=== PATIENT | male | born 1965 | race Caucasian/White ===

== ENCOUNTER 2021-11-16 22:46 | Observation (INO) ==
[2021-11-16 23:19] LABS: Basophils # (auto) 0.02 K/uL (0-0.2); Basophils % (auto) 0.4 %; Eosinophils # (auto) 0.26 K/uL (0-0.5); Eosinophils % (auto) 5.2 %; Hematocrit (blood only) 38.8 % (42-52); Hemoglobin 13.6 g/dL (14.0-18.0); Immature Granulocytes # (auto) 0.01 K/uL (0.00-0.02); Immature Granulocytes % (auto) 0.2 %; Lymphocytes # (auto) 2.09 K/uL (1.2-3.4); Lymphocytes % (auto) 41.5 %; Mean Corpuscular Hemoglobin 30.8 pg (25-34); Mean Corpuscular Hgb Conc 35.1 g/dL (32-36); Mean Platelet Volume 11.6 fL (7.4-10.4); Monocytes % (auto) 11.9 %; Neutrophils # (auto) 2.06 K/uL (1.4-6.5); Neutrophils % (auto) 40.8 %; Platelet Count 184 K/uL (130-400); RDW Coefficient of Variation 13.2 % (11.5-14.5); RDW Standard Deviation 42.8 fL (36.4-46.3); Red Blood Count 4.41 M/uL (4.7-6.1); White Blood Count 5.04 K/uL (4.8-10.8)
[2021-11-16 23:33] LABS: Partial Thromboplastin Time 27.2 Seconds (21.0-31.0); Prothrombin Time 10.4 Seconds (9.0-12.0)
--- NOTE | 2021-11-16 23:33 | Emergency Department Note ---
History of Present Illness General Chief complaint: Chest Pain Time Seen by Provider: 11/16/21 22:55 History of Present Illness Maximum Pain Intensity: [age]-year-old male presents emergency department with an onset of substernal chest pressure radiating to his left shoulder that started 1 hour prior to arrival at rest. Patient states that he was getting ready to go to bed developed subs ternal chest pressure and shortness of breath diaphoresis and some nausea. Patient states that he has been evaluated in the past for chest pain. Patient was given aspirin by EMS prior to arrival. Patient also states that he took NyQuil ; patient states that the pain initially was 9 out of 10 is now 1 out of 10. There are no other mitigating or alleviating factors Home Medications Medication Instructions Recorded Confirmed Type cholecalciferol (vitamin D3) 25 1,000 units PO QAM #60 cap 04/19/19 07/06/21 History mcg (1,000 unit) capsule gabapentin 100 mg capsule 100 mg PO HS PRN cap 04/19/19 07/06/21 History tamsulosin 0.4 mg capsule 0.4 mg PO HS #90 cap 01/01/20 07/06/21 Rx pantoprazole 40 mg tablet,delayed 40 mg PO QAM 08/01/20 07/06/21 History release lisinopril 20 mg tablet 20 mg PO DAILY #90 tab 10/20/20 07/06/21 Rx blood sugar diagnostic (Contour 05/04/21 07/06/21 History Next Test Strips) insulin syringe-needle U-100 0.5 #300 ea 05/04/21 07/06/21 Rx mL 31 gauge x 5/16" (BD Insulin Syringe Ultra-Fine) pen needle, diabetic 32 gauge x #100 ea 05/04/21 07/06/21 Rx 5/32" (BD Saida 2nd Gen Pen Needle) aspirin 81 mg capsule 81 mg PO DAILY #30 cap 07/06/21 07/06/21 Rx insulin aspart U-100 100 unit/mL See Rx Instructions SQ TID #54 ml 07/06/21 Rx subcutaneous solution insulin degludec 100 unit/mL (3 45 unit SUBCUT DAILY 90 Days #45 ml 07/06/2110/25 Rx mL) subcutaneous pen (Tresiba FlexTouch U-100 insulin) rosuvastatin 5 mg tablet 5 mg PO .every other day #30 tab 07/06/21 07/06/21 Rx semaglutide 0.5 mg SUBCUT WK 11/17/21 11/17/21 History Allergies Allergy/AdvReac Type Severity Reaction Status Date / Time pollen extracts Allergy Verified 07/06/21 08:34 Past Med/Surg History Medical History Acid reflux Acute sinusitis BPH with obstruction/lower urinary tract symptoms Close exposure to 2019-nCoV COVID-19 (07/2020) Diabetic peripheral neuropathy Hyperlipidemia Hypertension Influenza B (10/2019) Nasal congestion RLS (restless legs syndrome) Social History Smoking Status: Never smoker Preferred Language: Spanish Feels Safe at Home: Yes Review of Systems A total of 10 systems reviewed and were otherwise negative Ear, Nose, Mouth, Throat: no ear pain Respiratory: no cough Cardiovascular: + chest pain Gastrointestinal: no abdominal pain Physical Exam Vital Signs Vital Signs - 24 hr 11/16/21 22:47 11/17/21 00:33 Temperature 36.8 C Temperature Source Oral Pulse Rate 78 Pulse Rate [Right Brachial] 71 Respiratory Rate 20 16 Respiratory Effort / Characteristics Non-Labored Spontaneous Respiratory Depth Normal Blood Pressure 181/89 H Blood Pressure [Right Arm] 172/79 H Blood Pressure Mean 119 Blood Pressure Mean [Right Arm] 110 Pulse Oximetry 97 97 Oxygen Delivery Method Room Air Room Air Sepsis New/Unexplained Change in Mental Status N/A Sepsis Action Taken by Nursing No Action Required VITAL SIGNS - Vital signs and nursing notes were reviewed. GENERAL - No acute distress. Communicates well with provider and answers questions appropriately. SKIN - Without rashes. HEAD - NC/AT. EYES - PERRL with EOMI bilaterally. Sclera anicteric. Palpebral conjunctiva pink and moist with no injection noted. EARS - No deformities of external structures noted on gross examination bilaterally. NOSE - Midline and without cyanosis. No epistaxis or purulent drainage noted. Septum midline without deviation or septal hematoma noted. MOUTH/OROPHARYNX - Without perioral cyanosis. Buccal mucosa pink a NECK - Neck with FROM. Supple LUNGS - Chest wall symmetric without accessory muscle use, intercostals retractions, or central cyanosis. Normal vesicular breath sounds CTA B/L. No wheezes, rales, or rhonchi appreciated. CARDIAC - RRR with S1/S2. No murmur, rubs, or gallops appreciated. ABDOMEN - Abdominal contour soft without pulsations or visible masses. BS normoactive all four quadrants. No tenderness, palpable masses, hepatosplenomegaly, or ascites noted. EXTREMITIES - No clubbing or peripheral cyanosis. No pretibial edema present.. +5/5 strength noted in UE/LE bilaterally. NEUROLOGIC - Cranial nerves II through XII grossly intact. PSYCH - A&Ox3 and cooperates fully with examiner. Pt is very pleasant and interacts well with examiner. Course Reevaluation(s) Reevaluation #1: Resting in no distress at 1:08 AM no current chest pain, patient is admitted to the [facility] for further evaluation of his chest pain Medical Decision Making Medical Records Attestation: I reviewed the patient's medical records. Laboratory Data Attestation: I reviewed the patient's lab results. Result diagrams: 11/16/21 23:06 11/16/21 23:06 Lab Results 11/16/21 11/16/21 11/16/21 Range/Units 23:06 23:06 23:06 WBC 5.04 (4.8-10.8) K/uL RBC 4.41 L (4.7-6.1) M/uL Hgb 13.6 L (14.0-18.0) g/dL Hct 38.8 L (42-52) % MCV 88.0 (80-100) fL MCH 30.8 (25-34) pg MCHC 35.1 (32-36) g/dL RDW Std Deviation 42.8 (36.4-46.3) fL RDW Coeff of Ester 13.2 (11.5-14.5) % Plt Count 184 (130-400) K/uL MPV 11.6 H (7.4-10.4) fL Immature Gran % (Auto) 0.2 % Neut % (Auto) 40.8 % Lymph % (Auto) 41.5 % [place] % (Auto) 11.9 % Eos % (Auto) 5.2 % Baso % (Auto) 0.4 % Neut # (Auto) 2.06 (1.4-6.5) K/uL Lymph # (Auto) 2.09 (1.2-3.4) K/uL [place] # (Auto) 0.60 H (0.11-0.59) K/uL Eos # (Auto) 0.26 (0-0.5) K/uL Baso # (Auto) 0.02 (0-0.2) K/uL Immature Gran # (Auto) 0.01 (0.00-0.02) K/uL PT 10.4 (9.0-12.0) Seconds INR 1.0 (0.9-1.1) APTT 27.2 (21.0-31.0) Seconds PTT Ratio 1.0 Sodium 138 (136-145) mmol/L Potassium 3.9 (3.5-5.1) mmol/L Chloride 107 (98-107) mmol/L Carbon Dioxide 25 (21-32) mmol/L Anion Gap 6 (3-11) BUN 18 (6-23) mg/dl Creatinine 1.06 (0.6-1.4) mg/dl Est Cr Clr Drug Dosing 89.7 ml/min Est GFR ( Amer) 89.9 ml/min Est GFR (Non-Af Amer) 77.5 ml/min BUN/Creatinine Ratio 17.0 (10-20) Glucose 145 H (70-99(Fasting)) mg/dl Calcium 9.2 (8.5-10.1) mg/dl Total Bilirubin 0.2 (0.2-1.0) mg/dl AST 21 (13-39) U/L ALT 40 (7-52) U/L Alkaline Phosphatase 49 (34-104) U/L Troponin I < 0.03 (0-0.04) ng/ml Total Protein 6.2 (6.0-8.3) gm/dl Albumin 3.9 (3.4-5.0) gm/dl Globulin 2.3 L (2.5-4.0) gm/dl Albumin/Globulin Ratio 1.7 (0.9-2) Imaging Data Attestation: I personally reviewed and interpreted this imaging study as follows: My Impression: Chest x-ray interpreted by me negative for infiltrate normal mediastinum no pneumothorax ECG Data Attestation: I personally reviewed and interpreted this ECG as follows: Additional Comments: EKG interpreted by me normal sinus rhythm rate of 79 normal intervals normal axis poor R wave progression the precordium no obvious ST segment elevation or depression MDM Narrative Medical decision making differential diagnosis angina, unstable angina, acute AR, musculoskeletal chest pain, GERD; plan is to check cardiac work-up; Impression & Plan Chest pain, Hypertension Discharge Plan Visit Data Chief Complaint: Chest Pain ED Provider: Michael Maria Discharge Problem: Chest pain, Hypertension Patient Disposition: Admitted As Inpatient Forms Stand Alone Forms: My [facility] broadbandchoices Prescriptions Prescriptions: No Action tamsulosin 0.4 mg capsule 0.4 mg PO HS Qty: 90 RF: 1 (DME) Contour Next Test Strips Strip See Rx Instructions .Route RF: 0 (DME) pen needle, diabetic [BD Saida 2nd Gen Pen Needle] 32 gauge x 5/32" needle See Rx Instructions .Route Qty: 100 RF: 1 (DME) insulin syringe-needle U-100 [BD Insulin Syringe Ultra-Fine] 0.5 mL 31 gauge x 5/16" syringe See Rx Instructions .Route Qty: 300 RF: 3 rosuvastatin 5 mg tablet 5 mg PO .every other day Qty: 30 RF: 2 Hold Instructions: cost prohibitive Tresiba FlexTouch U-100 100 unit/mL (3 mL) insulin pen 45 unit subcut DAILY 90 Days Qty: 45 RF: 3 insulin aspart U-100 100 unit/mL solution See Rx Instructions SQ TID Qty: 54 RF: 0 aspirin 81 mg capsule 81 mg PO DAILY Qty: 30 RF: 2 lisinopril 20 mg tablet 20 mg PO DAILY Qty: 90 RF: 3 cholecalciferol (vitamin D3) 1,000 unit capsule 1,000 units PO QAM Qty: 60 RF: 0 gabapentin 100 mg capsule 100 mg PO HS PRN (Reason: neuropathy) RF: 0 pantoprazole 40 mg tablet,delayed release (DR/EC) 40 mg PO QAM RF: 0 semaglutide 0.25 mg or 0.5 mg(2 mg/1.5 mL) pen injector 0.5 mg subcut WK RF: 0 Referrals Referrals: Corinna Braxton MD [Primary Care Provider] -
[2021-11-16 23:45] LABS: Alanine Aminotransferase 40 U/L (7-52); Albumin Globulin Ratio 1.7 (0.9-2); Albumin Level 3.9 gm/dl (3.4-5.0); Alkaline Phosphatase 49 U/L (34-104); Anion Gap 6 (3-11); Aspartate Aminotransferase 21 U/L (13-39); Bilirubin,Total 0.2 mg/dl (0.2-1.0); Blood Urea Nitrogen 18 mg/dl (6-23); Calcium 9.2 mg/dl (8.5-10.1); Carbon Dioxide 25 mmol/L (21-32); Chloride 107 mmol/L (98-107); Creatinine Clr Calc Pharmacy 89.7 ml/min; Est GFR (African American) 89.9 ml/min; Est GFR (Non-African American) 77.5 ml/min; Globulin 2.3 gm/dl (2.5-4.0); Glucose 145 mg/dl (70-99(Fasting)); Potassium 3.9 mmol/L (3.5-5.1); Sodium 138 mmol/L (136-145); Total Protein 6.2 gm/dl (6.0-8.3)
[2021-11-17 00:01] LABS: Troponin I < 0.03 ng/ml (0-0.04)
--- NOTE | 2021-11-17 00:53 | History & Physical Report ---
Date of Service November 17, 2021 Assessment & Plan (1) Chest pain radiating to jaw: Plan: Left-sided burning chest pain radiating to jaw and arm/hypertension The patient will be admitted to telemetry for serial cardiac enzymes, serial EKG's, cardiac rhythm monitoring and a 2-D echocardiogram with Dopplers. Continue aspirin 81 mg daily, lisinopril 20 mg daily. Add Nitropaste 1 inch anterior chest wall every 6 hours Increase dosing rosuvastatin to high intensity (2) Chest pain radiating to arm: Plan: See above (3) Uncontrolled diabetes mellitus: Plan: Hold semaglutide and standing orders for insulin aspart Continue insulin degludec, but decreased to 45 to 30 units subcu daily while in hospital Accu-Cheks with sliding scale Check hemoglobin A1c (4) Diabetic peripheral neuropathy: Plan: Continue gabapentin (5) BPH with obstruction/lower urinary tract symptoms: Plan: Continue tamsulosin 0.4 mg at bedtime (6) Acid reflux: Plan: Continue pantoprazole 40 mg daily (7) Hyperlipidemia: Plan: Increase rosuvastatin from 5 to 20 mg subcu daily Check a fasting lipid panel (8) Hypertension: Plan: See above History of Present Illness Chief Complaint: The patient presents to the emergency department with complaint of severe burning pain and discomfort on theleft side of his chest, radiating to his left side of neck and arm, that began about 1 hour prior to arrival, as he was getting into bed. Primary Care Provider: Corinna Braxton MD The patient is a 56-year-old male with a past medical history including COVID-19 infection in September, obesity, uncontrolled diabetes mellitus, RLS, diabetic peripheral neuropathy, BPH with LUTS, GERD, hyperlipidemia, and hypertension. He presents with symptoms as noted above. He has had milder symptoms in the past, but nothing similar to this in intensity or persistence. He denies any recent change in dietary or exercise habits. He and his reports that there has been significantly more stress at work recently due it to being very busy due to it being backed up due to the COVID-19 pandemic Allergies Allergy/AdvReac Type Severity Reaction Status Date / Time pollen extracts Allergy Congested Verified 11/17/21 01:14 Home Medications Medication Instructions Recorded Confirmed Type gabapentin 100 mg capsule 100 mg PO HS PRN cap 04/19/19 11/17/21 History tamsulosin 0.4 mg capsule 0.4 mg PO HS #90 cap 01/01/20 11/17/21 Rx pantoprazole 40 mg tablet,delayed 40 mg PO QAM PRN 08/01/20 11/17/21 History release blood sugar diagnostic (Contour 05/04/21 07/06/21 History Next Test Strips) insulin syringe-needle U-100 0.5 #300 ea 05/04/21 07/06/21 Rx mL 31 gauge x 5/16" (BD Insulin Syringe Ultra-Fine) pen needle, diabetic 32 gauge x #100 ea 05/04/21 07/06/21 Rx 5/32" (BD Saida 2nd Gen Pen Needle) insulin aspart U-100 100 unit/mL See Rx Instructions SQ TID #54 ml 07/06/21 11/17/21 Rx subcutaneous solution insulin degludec 100 unit/mL (3 45 unit SUBCUT DAILY 90 Days #45 ml 07/06/21 11/17/21 Rx mL) subcutaneous pen (Tresiba FlexTouch U-100 insulin) rosuvastatin 5 mg tablet 5 mg PO .every other day #30 tab 07/06/21 11/17/21 Rx lisinopril 20 mg tablet 20 mg PO QAM 11/17/21 11/17/21 History semaglutide 0.5 mg SUBCUT WK 11/17/21 11/17/21 History Past Med/Surg History Medical History Acid reflux Acute sinusitis BPH with obstruction/lower urinary tract symptoms Close exposure to 2019-nCoV COVID-19 (07/2020) Diabetic peripheral neuropathy Hyperlipidemia Hypertension Influenza B (10/2019) Nasal congestion RLS (restless legs syndrome) Social History Smoking Status: Never smoker Preferred Language: Slovak Feels Safe at Home: Yes Review of Systems Review of Systems: The patient denies palpitations, cough, lower extremity swelling, sore throat, fevers, chills, sweats, nausea, vomiting, diarrhea , constipation, abdominal pain, pelvic pain, blood in urine or stool, dysuria, urinary frequency or urgency, lightheadedness, dizziness, headache, memory loss, loss of consciousness, rash, abnormal bruising or bleeding, imbalance, focal or generalized weakness, numbness or tingling in right arm or bilateral legs, generalized arthralgias or myalgias, back or neck pain, or night sweats. The review of systems is otherwise negative other than for that already noted above, and at least 10 systems have been reviewed. Physical Exam Physical Exam: The patient is awake, alert and oriented 3, well developed and well nourished, normocephalic and atraumatic, lying in bed and in no acute distress. HEENT--PERRL, EOMI, mucous membranes and oropharynx normal Neck--supple. No JVD. No bruits. Thyroid normal, trachea midline, no adenopathy. Heart--normal S1 and S2. No murmurs, rubs or gallops. Lungs--clear bilaterally, no respiratory distress, no accessory muscle use. Abdomen--normal bowel sounds and soft. Nontender. Nondistended. Obese Extremities--no cyanosis or clubbing. No edema. Dermatologic--normal skin turgor, normal color, no abnormal lymph nodes, no rash. Neurologic--cranial nerves II through XII grossly intact. Rheumatologic--normal range of motion. Psychiatric--normal affect. Results & Data Results & Data ([facility]) Vital Signs (Past 12 Hours) Vital Signs Temp Pulse Resp BP Pulse Ox 11/16/21 22:47 36.8 C 78 20 181/89 H 97 Laboratory Results Laboratory Results WBC 5.04 K/uL (4.8-10.8) 11/16/21 23:06 RBC 4.41 M/uL (4.7-6.1) L 11/16/21 23:06 Hgb 13.6 g/dL (14.0-18.0) L 11/16/21 23:06 Hct 38.8 % (42-52) L 11/16/21 23:06 MCV 88.0 fL (80-100) 11/16/21 23:06 MCH 30.8 pg (25-34) 11/16/21 23:06 MCHC 35.1 g/dL (32-36) 11/16/21 23:06 RDW Std Deviation 42.8 fL (36.4-46.3) 11/16/21 23:06 RDW Coeff of Ester 13.2 % (11.5-14.5) 11/16/21 23:06 Plt Count 184 K/uL (130-400) 11/16/21 23:06 MPV 11.6 fL (7.4-10.4) H 11/16/21 23:06 Immature Gran % (Auto) 0.2 % 11/16/21 23:06 Neut % (Auto) 40.8 % 11/16/21 23:06 Lymph % (Auto) 41.5 % 11/16/21 23:06 [place] % (Auto) 11.9 % 11/16/21 23:06 Eos % (Auto) 5.2 % 11/16/21 23:06 Baso % (Auto) 0.4 % 11/16/21 23:06 Neut # (Auto) 2.06 K/uL (1.4-6.5) 11/16/21 23:06 Lymph # (Auto) 2.09 K/uL (1.2-3.4) 11/16/21 23:06 [place] # (Auto) 0.60 K/uL (0.11-0.59) H 11/16/21 23:06 Eos # (Auto) 0.26 K/uL (0-0.5) 11/16/21 23:06 Baso # (Auto) 0.02 K/uL (0-0.2) 11/16/21 23:06 Immature Gran # (Auto) 0.01 K/uL (0.00-0.02) 11/16/21 23:06 PT 10.4 Seconds (9.0-12.0) 11/16/21 23:06 INR 1.0 (0.9-1.1) 11/16/21 23:06 APTT 27.2 Seconds (21.0-31.0) 11/16/21 23:06 PTT Ratio 1.0 11/16/21 23:06 Sodium 138 mmol/L (136-145) 11/16/21 23:06 Potassium 3.9 mmol/L (3.5-5.1) 11/16/21 23:06 Chloride 107 mmol/L (98-107) 11/16/21 23:06 Carbon Dioxide 25 mmol/L (21-32) 11/16/21 23:06 Anion Gap 6 (3-11) 11/16/21 23:06 BUN 18 mg/dl (6-23) 11/16/21 23:06 Creatinine 1.06 mg/dl (0.6-1.4) 11/16/21 23:06 Est Cr Clr Drug Dosing 89.7 ml/min 11/16/21 23:06 Est GFR ( Amer) 89.9 ml/min 11/16/21 23:06 Est GFR (Non-Af Amer) 77.5 ml/min 11/16/21 23:06 BUN/Creatinine Ratio 17.0 (10-20) 11/16/21 23:06 Glucose 145 mg/dl (70-99(Fasting)) H 11/16/21 23:06 Calcium 9.2 mg/dl (8.5-10.1) 11/16/21 23:06 Total Bilirubin 0.2 mg/dl (0.2-1.0) 11/16/21 23:06 AST 21 U/L (13-39) 11/16/21 23:06 ALT 40 U/L (7-52) 11/16/21 23:06 Alkaline Phosphatase 49 U/L (34-104) 11/16/21 23:06 Troponin I < 0.03 ng/ml (0-0.04) 11/16/21 23:06 Total Protein 6.2 gm/dl (6.0-8.3) 11/16/21 23:06 Albumin 3.9 gm/dl (3.4-5.0) 11/16/21 23:06 Globulin 2.3 gm/dl (2.5-4.0) L 11/16/21 23:06 Albumin/Globulin Ratio 1.7 (0.9-2) 11/16/21 23:06 SARS-CoV-2, RNA, NAAT NEGATIVE (NEGATIVE) 11/17/21 00:50 Code Status & VTE Plan Code Status Full code VTE Prophylaxis Plan VTE Prophylaxis will be ordered: Yes PG Care Time/CCT Total # of Minutes Spent Total Time Spent with Patient: Total time spent is greater than 50% in coordination of care (as documented) at patient's floor/unit and/or counseling patient: Coding Level of Care Code INT OBSERVATION CARE 70M LVL 3 Diagnoses Chest pain radiating to jaw R07.9 Chest pain radiating to arm R07.89 Uncontrolled diabetes mellitus E11.65 Diabetic peripheral neuropathy E11.42 BPH with obstruction/lower urinary tract symptoms N40.1; N13.8 Acid reflux K21.9 Hyperlipidemia E78.5 Hypertension I10 Hypertension type: primary hypertension (1) Hypertension Hypertension type: primary hypertension Qualified Code(s): I10 - Essential (primary) hypertension
[2021-11-17] MEDS: NITROGLYCERIN 2% OINTMENT 30GM TUBE EXT SCH ×3 (01:08→13:13)
[2021-11-17] MEDS ORDERED: GLUCOSE 40% GEL 15 GM TUBE PO PRN (02:41)
[2021-11-17] MEDS ORDERED: CARBOHYDRATES FOR HYPOGLYCEMIA PO PRN (02:41)
[2021-11-17] MEDS ORDERED: ONDANSETRON INJ 2 MG/ML 2 ML VIAL IV PRN (02:41)
[2021-11-17] MEDS ORDERED: GLUCOSE 10 TABS/TUBE PO PRN (02:41)
[2021-11-17] MEDS ORDERED: MoRPHine SULFATE 2 MG/ML CARP IV PRN (02:41)
[2021-11-17] MEDS ORDERED: ACETAMINOPHEN 325 MG TAB PO PRN (02:41)
[2021-11-17] MEDS ORDERED: DEXTROSE 50% 50 ML SYRINGE IV PRN (02:41)
[2021-11-17] MEDS ORDERED: GLUCAGON FOR INJ 1 MG VIAL SQ PRN (02:41)
[2021-11-17 06:19] LABS: Basophils # (auto) 0.02 K/uL (0-0.2); Basophils % (auto) 0.4 %; Eosinophils # (auto) 0.29 K/uL (0-0.5); Hematocrit (blood only) 39.6 % (42-52); Hemoglobin 13.5 g/dL (14.0-18.0); Immature Granulocytes # (auto) 0.01 K/uL (0.00-0.02); Immature Granulocytes % (auto) 0.2 %; Lymphocytes # (auto) 2.28 K/uL (1.2-3.4); Mean Corpuscular Hemoglobin 30.3 pg (25-34); Mean Corpuscular Hgb Conc 34.1 g/dL (32-36); Mean Corpuscular Volume 88.8 fL (80-100); Mean Platelet Volume 11.9 fL (7.4-10.4); Monocytes # (auto) 0.51 K/uL (0.11-0.59); Monocytes % (auto) 10.5 %; Neutrophils # (auto) 1.74 K/uL (1.4-6.5); Neutrophils % (auto) 35.9 %; Platelet Count 162 K/uL (130-400); RDW Coefficient of Variation 13.2 % (11.5-14.5); RDW Standard Deviation 43.1 fL (36.4-46.3); Red Blood Count 4.46 M/uL (4.7-6.1); White Blood Count 4.85 K/uL (4.8-10.8)
[2021-11-17 06:57] LABS: Albumin Level 3.7 gm/dl (3.4-5.0); BUN Creatinine Ratio 20.2 (10-20); Calcium 9.2 mg/dl (8.5-10.1); Creatinine Clr Calc Pharmacy 94.4 ml/min; Est GFR (African American) 97.6 ml/min; Est GFR (Non-African American) 84.2 ml/min; Phosphorus 4.9 mg/dl (2.5-4.9); Potassium 3.9 mmol/L (3.5-5.1)
--- NOTE | 2021-11-17 07:20 | XRay Report ---
XR chest 1V portable CLINICAL HISTORY: Atypical chest pain. COMPARISON STUDY: Chest radiograph November 09, 2020. FINDINGS: Lung volumes are normal. Lungs are clear. There is no pneumothorax or pleural effusion. Car diac size is normal. Mediastinal contours are normal. There is no evidence for pulmonary edema. Heale d left ninth rib fracture is again noted. IMPRESSION: No acute cardiopulmonary findings. ACT 112: Negative or not required by law. Electronically signed by: Juvenal Braxton M.D. 11/17/2021 7:18 AM
[2021-11-17 07:27] LABS: Estimated Average Glucose 183 mg/dl
[2021-11-17] MEDS: lisinopril 20 MG TAB PO SCH (08:16)
[2021-11-17] MEDS: CHOLECALCIFEROL 1,000 UNITS 25 MCG TAB PO SCH (08:16)
[2021-11-17] MEDS: ASPIRIN 81 MG ECTAB PO SCH (08:16)
[2021-11-17] MEDS: INSULIN GLARGINE SOLOSTAR 100 UNITS/ML 3 ML PEN SQ SCH (08:16)
[2021-11-17] MEDS: INSULIN ASPART PER UNIT SC SCH ×4 (08:18→20:36)
[2021-11-17] MEDS ORDERED: PANTOprazole 40 MG TAB PO SCH (09:00)
--- NOTE | 2021-11-17 09:11 | XCELERA ---
[id number]
[2021-11-17] MEDS ORDERED: NITROGLYCERIN SL 0.4 MG/TAB TAB ONE ×2 (10:52→10:55)
[2021-11-17] MEDS ORDERED: METOPROLOL TARTRATE 1 MG/ML VIAL IV STA (11:03)
--- NOTE | 2021-11-17 11:06 | Pre Anesthesia Assessment ---
Date of Service November 17, 2021 Pre Sedation Assessment Vital Signs Temp Pulse Pulse Resp BP BP Pulse Ox 11/17/21 11:00 73 154/78 H 11/17/21 09:11 36.8 C 63 16 151/76 H 98 11/17/21 03:04 36.8 C 65 16 159/83 H 98 11/17/21 00:33 71 16 172/79 H 97 11/16/21 22:47 36.8 C 78 20 181/89 H 97 Cardiovascular RRR, no murmur, no edema Respiratory normal respiratory effort, lungs clear to auscultation Pre-Sedation Airway Assessment Smoking Status: Never smoker Mallampati Class: IV ASA: ASA3 NPO Status Date of Last Intake of Fluids: 11/17/21 Time of Last Intake of Fluids: 08:00 Date of Last Intake of Solid Food: 11/17/21 Time of Last Intake of Solid Foods: 08:00 Procedure Planning Contraindications for Sedation: none Current Medications Reviewed: Yes Notes The planned sedation has been discussed with the patient. Informed Consent was obtained. I have identified the patient, determined the appropriateness of sedation and have assessed the patient immediately prior to the procedure. All medicine(s) and interventions are by my order.
[2021-11-17] MEDS ORDERED: NITROGLYCERIN SL 0.4 MG/TAB TAB SL STA (11:09)
--- NOTE | 2021-11-17 11:14 | Cardiology Consultation ---
Date of Consultation November 17, 2021 Assessment & Plan (1) Acute coronary syndrome: (2) Angina at rest: (3) Elevated troponin: (4) Hypertension: (5) Hyperlipidemia: ASSESSMENT/PLAN: 1. Possible Acute coronary syndrome/angina: Currently having chest discomfort concerning for angina given multiple risk factors and troponin that is trending upward. Given such, recommended cardiac catheterization. Risks and benefits were discussed with him in detail. He was made aware that CT surgery is not available at this facility. He is agreeable to proceed with catheterization. His was also updated via telephone. Recommend heparin drip. Already received full aspirin by EMS. Metoprolol 5 mg IV x1 given hypertension in the setting of chest discomfort. Ask nursing staff to give another dose of sublingual nitroglycerin (this was done and chest discomfort improved from 11/11 to 10/14). Repeat ECG ordered. Repeat troponin. LV systolic function and wall motion appeared normal on ECHO this morning. 2. Elevated troponin: Not diagnostic of AK but trending upward in the setting of ongoing symptoms and multiple risk factors. Plan as above. 3. Hypertension: Blood pressure has been mildly elevated here. Continue home KISHA-inhibitor. Dose of metoprolol now. 4. Dyslipidemia: Has not tolerated daily dose of rosuvastatin due to back and leg pain. Tolerating every other day dosing. If found to have CAD, will discuss further about other potential statin therapies if not tried in the past verses non statin therapy to further improve LDL. 5. Disposition: Cardiology will continue to follow. Plan of care communicated with primary hospitalist service, Ariella Schmidt. Patient's was updated via telephone as per his request. Highly complex medical issues. History of Present Illness Reason for Consultation: Elevated troponin; Chest Pain; Multiple Risk Factors Requesting Physician: Ariella Schmidt Attending Physician: Magnus Alfred MD History of Present Illness Mr. Bell is a very pleasant 56-year-old gentleman with history sign ificant for insulin-dependent diabetes, hypertension, dyslipidemia, and family history of CAD. His primary rehab aide is Dr. Miller. He was admitted on 11/17/2021 after presenting overnight on 11/16/2021 with chest discomfort. He has a history of chronic intermittent chest discomfort and underwent cardiac catheterization in 2014 for such symptoms. There was no significant CAD noted at that time. He had another episode last evening which he states is different than any chest pain he has had in the past. It was much more intense. He described as a left-sided sharp chest discomfort that occurred after walking back to his bedroom. He became short of breath and diaphoretic, describing that he became soaked. There is radiation of the pain to the left shoulder and neck. He called for EMS. They gave him nitroglycerin and the pain resolved. He has had the pain intermittently overnight while hospitalized and reports 3/10 chest discomfort during our visit this morning. ECGs have not demonstrated any significant dynamic ST changes. Echocardiogram was performed today with normal wall motion and normal LV systolic function. His initial troponin on presentation was undetectable but this morning's troponin increased to 0.07, prompting cardiology consultation. He admits that for the 2 days prior to presentation, he noted increased dyspnea with exertion while climbing stairs, which is not a common symptom for him for such activities. He describes himself as active. He has chronic lower extremity neuropathy and has been experiencing bilateral hip pain and low back pain for the past few weeks. He also has abdominal pain from insulin injections, but otherwise no other acute symptoms over the past 2 or 3 days. He denies melena, hematochezia, hematuria, or other bleeding. He denies syncope, palpitations, orthopnea, shortness of breath at rest. Review of systems: As above. Review of systems otherwise negative/unremarkable. Family history: Mother had CABG in father had PCI their 60s. Social history: Denies smoking. Occasional alcohol. No drugs. Lives at home with his , Alexa. 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 He has a son and a daughter. He was alone in his hospital room. Allergies Allergy/AdvReac Type Severity Reaction Status Date / Time pollen extracts Allergy Congested Verified 11/17/21 01:14 Home Medications Medication Instructions Recorded Confirmed Type gabapentin 100 mg capsule 100 mg PO HS PRN cap 04/19/19 11/17/21 History tamsulosin 0.4 mg capsule 0.4 mg PO HS #90 cap 01/01/20 11/17/21 Rx pantoprazole 40 mg tablet,delayed 40 mg PO QAM PRN 08/01/20 11/17/21 History release blood sugar diagnostic (Contour 05/04/21 07/06/21 History Next Test Strips) insulin syringe-needle U-100 0.5 #300 ea 05/04/21 07/06/21 Rx mL 31 gauge x 5/16" (BD Insulin Syringe Ultra-Fine) pen needle, diabetic 32 gauge x #100 ea 05/04/21 07/06/21 Rx 5/32" (BD Saida 2nd Gen Pen Needle) insulin aspart U-100 100 unit/mL See Rx Instructions SQ TID #54 ml 07/06/21 11/17/21 Rx subcutaneous solution insulin degludec 100 unit/mL (3 45 unit SUBCUT DAILY 90 Days #45 ml 07/06/21 11/17/21 Rx mL) subcutaneous pen (Tresiba FlexTouch U-100 insulin) rosuvastatin 5 mg tablet 5 mg PO .every other day #30 tab 07/06/21 11/17/21 Rx lisinopril 20 mg tablet 20 mg PO QAM 11/17/21 11/17/21 History semaglutide 0.5 mg SUBCUT WK 11/17/21 11/17/21 History Patient History Medical History Acid reflux Acute sinusitis BPH with obstruction/lower urinary tract symptoms Close exposure to 2019-nCoV COVID-19 (07/2020) Diabetic peripheral neuropathy Hyperlipidemia Hypertension Influenza B (10/2019) Nasal congestion RLS (restless legs syndrome) Uncontrolled diabetes mellitus Social History Smoking Status: Never smoker Hx Alcohol Use: Yes Alcohol type: beer Hx Substance Use: No Preferred Language: Uzbek Communication Ability: Effective Environmental Permitting Specialist Required: No Beliefs That Will Affect Care: None Current Living Situation: Spouse Feels Safe at Home: Yes Assistive Devices: None Physical Exam Physical Exam: Gen.: No acute distress. Alert and oriented. HEENT: Anicteric sclera. Neck: Thick neck. No JVD. Right carotid bruit. Normal carotid upstrokes bilaterally. Cardiac: PMI was nonpalpable. No ventricular heave. Regular rate and rhythm. Normal S1-S2. No murmurs, rubs, or gallops. Pulmonary: Clear to auscultation bilaterally without wheezes, rales, or rhonchi. Abdomen: Soft, nondistended, with normoactive bowel sounds. No bruits noted. Mild tenderness, centrally/epigastric area. Extremities: 2+ radial pulses bilaterally. Symmetrical pulses. 2+ posterior tibialis pulses bilaterally. Trace bilateral lower extremity edema. No cyanosis. No palpable cords. Psychiatric: Affect appears appropriate. Chest: Nontender to palpation. Results & Data ([facility]) Vital Signs (Past 12 Hours) Vital Signs Temp Pulse Resp BP Pulse Ox 11/17/21 11:00 73 154/78 H 11/17/21 09:11 36.8 C 63 16 151/76 H 98 11/17/21 03:04 36.8 C 65 16 159/83 H 98 11/17/21 00:33 71 16 172/79 H 97 Laboratory Results Laboratory Results - last 24 hr 11/16/21 11/16/21 11/16/21 23:06 23:06 23:06 WBC 5.04 RBC 4.41 L Hgb 13.6 L Hct 38.8 L MCV 88.0 MCH 30.8 MCHC 35.1 RDW Std Deviation 42.8 RDW Coeff of Ester 13.2 Plt Count 184 MPV 11.6 H Immature Gran % (Auto) 0.2 Neut % (Auto) 40.8 Lymph % (Auto) 41.5 Randolph % (Auto) 11.9 Eos % (Auto) 5.2 Baso % (Auto) 0.4 Neut # (Auto) 2.06 Lymph # (Auto) 2.09 Randolph # (Auto) 0.60 H Eos # (Auto) 0.26 Baso # (Auto) 0.02 Immature Gran # (Auto) 0.01 PT 10.4 INR 1.0 APTT 27.2 PTT Ratio 1.0 Sodium 138 Potassium 3.9 Chloride 107 Carbon Dioxide 25 Anion Gap 6 BUN 18 Creatinine 1.06 Est Cr Clr Drug Dosing 89.7 Est GFR ( Amer) 89.9 Est GFR (Non-Af Amer) 77.5 BUN/Creatinine Ratio 17.0 Glucose 145 H POC Glucose Estimat Average Glucose Hemoglobin A1c Calcium 9.2 Phosphorus Total Bilirubin 0.2 AST 21 ALT 40 Alkaline Phosphatase 49 Troponin I < 0.03 Total Protein 6.2 Albumin 3.9 Globulin 2.3 L Albumin/Globulin Ratio 1.7 SARS-CoV-2, RNA, NAAT 11/17/21 11/17/21 11/17/21 00:50 05:31 05:31 WBC 4.85 RBC 4.46 L Hgb 13.5 L Hct 39.6 L MCV 88.8 MCH 30.3 MCHC 34.1 RDW Std Deviation 43.1 RDW Coeff of Ester 13.2 Plt Count 162 MPV 11.9 H Immature Gran % (Auto) 0.2 Neut % (Auto) 35.9 Lymph % (Auto) 47.0 Randolph % (Auto) 10.5 Eos % (Auto) 6.0 Baso % (Auto) 0.4 Neut # (Auto) 1.74 Lymph # (Auto) 2.28 Randolph # (Auto) 0.51 Eos # (Auto) 0.29 Baso # (Auto) 0.02 Immature Gran # (Auto) 0.01 PT INR APTT PTT Ratio Sodium 139 Potassium 3.9 Chloride 109 H Carbon Dioxide 23 Anion Gap 7 BUN 20 Creatinine 0.99 Est Cr Clr Drug Dosing 94.4 Est GFR ( Amer) 97.6 Est GFR (Non-Af Amer) 84.2 BUN/Creatinine Ratio 20.2 H Glucose 137 H POC Glucose Estimat Average Glucose Hemoglobin A1c Calcium 9.2 Phosphorus 4.9 Total Bilirubin AST ALT Alkaline Phosphatase Troponin I Total Protein Albumin 3.7 Globulin Albumin/Globulin Ratio SARS-CoV-2, RNA, NAAT NEGATIVE 11/17/21 11/17/21 11/17/21 05:31 05:31 07:13 WBC RBC Hgb Hct MCV MCH MCHC RDW Std Deviation RDW Coeff of Ester Plt Count MPV Immature Gran % (Auto) Neut % (Auto) Lymph % (Auto) Randolph % (Auto) Eos % (Auto) Baso % (Auto) Neut # (Auto) Lymph # (Auto) Randolph # (Auto) Eos # (Auto) Baso # (Auto) Immature Gran # (Auto) PT INR APTT PTT Ratio Sodium Potassium Chloride Carbon Dioxide Anion Gap BUN Creatinine Est Cr Clr Drug Dosing Est GFR ( Amer) Est GFR (Non-Af Amer) BUN/Creatinine Ratio Glucose POC Glucose 159 H Estimat Average Glucose 183 Hemoglobin A1c 8.0 H Calcium Phosphorus Total Bilirubin AST ALT Alkaline Phosphatase Troponin I 0.07 H* Total Protein Albumin Globulin Albumin/Globulin Ratio SARS-CoV-2, RNA, NAAT 11/17/21 11:11 WBC RBC Hgb Hct MCV MCH MCHC RDW Std Deviation RDW Coeff of Ester Plt Count MPV Immature Gran % (Auto) Neut % (Auto) Lymph % (Auto) Randolph % (Auto) Eos % (Auto) Baso % (Auto) Neut # (Auto) Lymph # (Auto) Randolph # (Auto) Eos # (Auto) Baso # (Auto) Immature Gran # (Auto) PT INR APTT PTT Ratio Sodium Potassium Chloride Carbon Dioxide Anion Gap BUN Creatinine Est Cr Clr Drug Dosing Est GFR ( Amer) Est GFR (Non-Af Amer) BUN/Creatinine Ratio Glucose POC Glucose 203 H Estimat Average Glucose Hemoglobin A1c Calcium Phosphorus Total Bilirubin AST ALT Alkaline Phosphatase Troponin I Total Protein Albumin Globulin Albumin/Globulin Ratio SARS-CoV-2, RNA, NAAT Diagnostic Findings Telemetry personally reviewed: Sinus rhythm. No arrhythmia. Echo reviewed 11/17/2021: Normal LV size, wall motion, systolic function. EF 60 65%. No significant valvular abnormalities. Chest x-ray 11/16/2021: No acute cardiopulmonary findings per Radiology. ECGs personally reviewed: ECG 11/16/2021 at 10:52 p.m.: Sinus rhythm 79 beats per minute. Possible septal infarct. ECG 11/17/2021 at 6:22 a.m.: Sinus 71 beats per minute. Medications Administered Current Inpatient Medications Acetaminophen (Acetaminophen 325 Mg Tab) 650 mg PO Q4H PRN PRN Reason: Pain or Fever Stop: 12/17/21 02:40 Aspirin (Aspirin 81 Mg Ectab) 81 mg PO DAILY CLAIR Stop: 12/17/21 08:59 Last Admin: 11/17/21 08:16 Dose: 81 mg Documented by: Dextrose (Dextrose 50% 50 Ml Syringe) 25 - 50 ml IV UD PRN; Protocol PRN Reason: Hypoglycemia Protocol Stop: 12/17/21 02:40 Gabapentin (Gabapentin 100 Mg Cap) 100 mg PO HS CLAIR Stop: 12/17/21 20:59 Glucagon (Glucagon For Inj 1 Mg Vial) 1 mg SQ UD PRN; Protocol PRN Reason: Hypoglycemia Protocol Stop: 12/17/21 02:40 Glucose (Glucose 10 Tabs/Tube) 4 - 8 tabs PO UD PRN; Protocol PRN Reason: Hypoglycemia Protocol Stop: 12/17/21 02:40 Glucose (Glucose 40% Gel 15 Gm Tube) 15 - 30 gm PO UD PRN; Protocol PRN Reason: Hypoglycemia Protocol Stop: 12/17/21 02:40 Heparin Sodium/Dextrose (Heparin Iv Adult Wt-Based Standard *No* Bolus Protocol) 1 ea IV Q15M [facility]; Protocol Stop: 12/17/21 11:14 Heparin Sodium/Dextrose (Heparin Sodium/Dextrose) 25,000 units in 500 mls @ 0.02 mls/hr IV .Q24H [facility]; Protocol Stop: 12/17/21 11:29 Insulin Aspart (Insulin Aspart Per Unit) 0 units SC ACHS CLAIR Stop: 12/17/21 07:29 Last Admin: 11/17/21 11:22 Dose: Not Given Documented by: Insulin Glargine (Insulin Glargine Solostar 100 Units/Ml 3 Ml Pen) 30 units SQ DAILY CLAIR Stop: 12/17/21 08:59 Last Admin: 11/17/21 08:16 Dose: 30 units Documented by: Lisinopril (Lisinopril 20 Mg Tab) 20 mg PO DAILY [facility] Stop: 12/17/21 08:59 Last Admin: 11/17/21 08:16 Dose: 20 mg Documented by: Miscellaneous (Carbohydrates For Hypoglycemia ) 15 - 30 gm PO UD PRN PRN Reason: Hypoglycemia Protocol Stop: 12/17/21 02:40 Morphine Sulfate (Morphine Sulfate 2 Mg/Ml Carp) 2 mg IV Q30M PRN PRN Reason: Chest Pain Stop: 12/01/21 02:40 Nitroglycerin (Nitroglycerin 2% Ointment 30gm Tube) 1 inch EXT Q6H [facility] Stop: 12/17/21 00:44 Last Admin: 11/17/21 06:41 Dose: 1 inch Documented by: Ondansetron HCl (Ondansetron Inj 2 Mg/Ml 2 Ml Vial) 4 mg IV Q6H PRN PRN Reason: Nausea Stop: 12/17/21 02:40 Pantoprazole Sodium (Pantoprazole 40 Mg Tab) 40 mg PO QAM CLAIR Stop: 12/17/21 08:59 Last Admin: 11/17/21 08:16 Dose: 40 mg Documented by: Pneumococcal Polyvalent Vaccine (Pneumococcal Polysaccharides 25 Mcg/0.5 Ml Vial/Syr) 25 mcg IM .ONCE ONE Stop: 11/18/21 03:12 Rosuvastatin Calcium (Rosuvastatin Calcium 20 Mg Tab) 20 mg PO Q48H CLAIR Stop: 12/17/21 20:59 Tamsulosin HCl (Tamsulosin Hcl 0.4 Mg Cap) 0.4 mg PO HS CLAIR Stop: 12/17/21 20:59 Vitamin D (Cholecalciferol 1,000 Units 25 Mcg Tab) 1,000 units PO QAM CLAIR Stop: 12/17/21 08:59 Last Admin: 11/17/21 08:16 Dose: 1,000 units Documented by: PG Care Time/CCT Total # of Minutes Spent Total Time Spent with Patient: Total time spent is greater than 50% in coordination of care (as documented) at patient's floor/unit and/or counseling patient: Coding Level of Care Code 85933 Office/OBS Consult Lvl 5 Diagnoses Acute coronary syndrome I24.9 Angina at rest I20.8 Elevated troponin R77.8 Hypertension I10 Hypertension type: primary hypertension Hyperlipidemia E78.5 (1) Hypertension Hypertension type: primary hypertension Qualified Code(s): I10 - Essential (primary) hypertension
[2021-11-17] MEDS ORDERED: HEPARIN SODIUM/DEXTROSE 25,000 UNITS/500 ML BAG IV SCH (11:30)
[2021-11-17] MEDS ORDERED: HEPARIN 25000 UNIT/500 ML D5W IV ONE (11:36)
[2021-11-17] MEDS: Heparin IV Adult Wt-Based Standard *NO* Bolus Protocol IV SCH ×5 (11:49→14:03)
[2021-11-17] MEDS ORDERED: MIDAZOLAM HCL 1 MG/ML 2ML VIAL ONE (11:53)
[2021-11-17] MEDS ORDERED: fentaNYL citrate 100 MCG/2 ML VIAL ONE (11:54)
[2021-11-17] MEDS ORDERED: HEPARIN (PORCINE) 1000 UNIT/ML 10 ML (CATH LAB USE ONLY) ONE (11:54)
[2021-11-17] MEDS ORDERED: niCARdipine HCL INJ 2.5 MG/ML 10 ML AMP ONE (11:54)
[2021-11-17] MEDS ORDERED: NITROGLYCERIN/D5W 100MCG/ML 20ML SYR ONE (11:55)
--- NOTE | 2021-11-17 13:13 | Cardiac Catheterization ---
[facility] Data: Commercial Manager Cardiac Status Clinical evaluation leading to the procedure CAD Presenation: Unstable angina Anginal Classification: CCS IV Heart Failure: No Cardiogenic Shock within 24 Hours: No Cardiac Arrest within 24 Hours: No Imaging Studies Past 6 Months: Yes Stress Studies Past 6 Months: No Coronary Anatomy Dominant: Right Diagnostic Physicians Name: Fox Martinez MD Status: Urgent (due to ongoing pain and elevated trop) Closure Device Percutaneous Entry Location: Radial Closure Device: Radial Band Recommendations: Management Recommendatons Cardiac Cath Procedure Full Procedure Date November 17, 2021 Pre-Procedure Diagnosis Pre-Procedure Diagnosis: Acute Coronary Syndrome and Angina AUC Score AUC Score: 8 Post-Procedure Diagnosis Post-Procedure Diagnosis: Mild CAD Procedure(s) Performed Procedure(s) Performed: Coronary Angiography and Left Heart Cath [id number] Engineer Fox Martinez MD Hand Cooper Helper(s) Deibler Estimated Blood Loss Estimated Blood Loss: < 25 ml Medication(s) Medication(s): Fentanyl, Heparin, Lidocaine 1%, Nicardipine and Versed Summary of Findings Procedures: 1. Coronary angiography 2. Left heart catheterization 3. Moderate sedation Indication: 56-year-old gentleman with insulin-dependent diabetes, hypertension, dyslipidemia, family history of CAD who presented with ongoing chest discomfort and slightly elevated troponins. Chest discomfort suspicious for angina given elevated troponins and relief with nitroglycerin and beta-blockade. Primary crematory attendant: Dr. Miller Coronary angiography: 1. Separate ostium for LAD and circumflex. 2. Left anterior descending: Large caliber vessel that extends to the apex. Proximal LAD luminal irregularities. Mid LAD 20 to 30%. Medium caliber D1, medium caliber D2, small caliber D3. RAJ-3 flow. 3. Circumflex: Nondominant. No significant CAD within the circumflex. Very small caliber OM1, small caliber OM 2, large caliber OM 3. OM 3 mid luminal irregularities. 4. Right coronary artery: RCA is dominant. Proximal RCA 10 to 20%. Luminal irregularities within the mid RCA. PDA and PL without significant CAD. RAJ-3 flow throughout. Left heart catheterization: 1. Left ventriculography was not performed. 2. No aortic stenosis. 3. LVEDP 16 mmHg. Moderate sedation: 1. Sedation start time: 12:33 PM 2. Sedation end time: 12:58 PM Procedural notes: 1. Initially, right radial artery was cannulated with access needle however the wire was only able to be advanced approximately 2 inches beyond the needle tip. [place] wire was attempted, with the same results. The decision was made to use the left radial artery. 2. Left radial artery was easily cannulated without known complication. Impression: 1. Mild nonobstructive CAD. 2. Mildly elevated left-sided filling pressure. 3. No aortic stenosis. Plan: 1. Risk factor modification. 2. Consider noncardiac causes for his chest discomfort. Hemodynamics Rest Ao:: 149/69 Final Ao: 160/70 LV: 164/6/16 Recommendations Recommendations: Management Recommendatons Radiation Exposure (mGy) 983 mGy. Fluoro time 2.7 min. Contrast (mls) 55 ml Procedural Complication(s) None Disposition PCU I attest to the content of the Intraoperative Record and any orders documented therein. Any exceptions are noted below. [facility] Card Cath Procedure Codes Cardiac Catheterization Procedure 1: Cardiovascular Cath Procedures: 30702 Coronaries and LHC (+/-LV) Moderate Sedation Procedure 1: Sedation/Anesthesia: 82968 Mod Sedation by the same physician;Init15 Min Child Age 5 & Up Procedure 2: Sedation/Anesthesia: 80450 Mod Sedation by the same physician; Ea [id number] Minutes PG Care Time/CCT Total # of Minutes Spent Total Time Spent with Patient: Total time spent is greater than 50% in coordination of care (as documented) at patient's floor/unit and/or counseling patient:
--- NOTE | 2021-11-17 13:14 | Post Anesthesia Assessment ---
Date of Service November 17, 2021 Post Sedation Assessment Vital Signs Temp Pulse Pulse Resp BP BP Pulse Ox 11/17/21 11:49 73 163/85 H 11/17/21 11:25 85 17 154/73 H 96 11/17/21 11:18 36.7 C 98 11/17/21 11:08 89 118/71 11/17/21 11:00 73 154/78 H 11/17/21 09:11 36.8 C 63 16 151/76 H 98 11/17/21 03:04 36.8 C 65 16 159/83 H 98 11/17/21 00:33 71 16 172/79 H 97 11/16/21 22:47 36.8 C 78 20 181/89 H 97 Recovery Score Activity: Moves 4 extremities Respiration: Deep Breath/Cough Circulation: +/-20% PreAnes Value Consciousness: Fully Awake Oxygen Saturation: > 92% On Room Air Discharge Sedation Level of Care: Fast Track Phase II Post Sedation Plan On clinical assessment, the patient appears to have tolerated the sedation without complications. Patient is recovering as anticipated. Patient will continue to be monitored by nursing and may be discharged when sedation discharge criteria are met per below protocol. Upon Completions of procedure up to 15 minutes continue every 5 minute vital signs and the P.A.R. score; then discharge to a Phase I or Fast Track to Phase II per the following guidelines: * Discharge Patient to appropriate Phase II area if PAR is 8 or greater or return to pre- procedure baseline. The post - procedure orders will be as directed. * If PAR score is less than 8 or not return to pre-procedure baseline then patient will follow Phase I monitoring till PAR is reached for Phase II. The Phase I may be done in procedure room or may call to secure a Phase I area. * If naloxone or flumazenil are used for reversal, hold in Phase I for continued monitoring from when last reversal dose was given for a minimum of 60 minutes or longer pending the nurse and/or physician discretion of patient condition before discharge to Phase II. Please call the Sedation Physician to re-evaluate and complete post-note for discharge to Phase II area. Do NOT discharge from procedure sedation or Phase 1 until post- sedation evaluation note is complete by procedure /sedation MD Sedation Discharge Instructions to be given to the patient at discharge to home.
[2021-11-17] MEDS ORDERED: SODIUM CHLORIDE 0.9% 1000ML 1,000 ML IV SCH (13:15)
[2021-11-17] MEDS ORDERED: GI COCKTAIL ED USE PO ONE (15:30)
[2021-11-17] MEDS ORDERED: GI Cocktail Single dose PO ONE (15:45)
--- NOTE | 2021-11-17 16:40 | Hospitalist Progress Note ---
Date of Service November 17, 2021 Assessment & Plan (1) Chest pain radiating to jaw: Plan: - Possible Angina? R/O ACS in the setting of multiple risk factors -- Presented with L sided burning CP with radiation to jaw and arm/hypertension - Initial troponin 0.03 with repeat at 0.07 and ongoing symptoms - underwent cardiac cath on 11/17 with non-occlusive CAD findings without need for PCI -- Seemed to have improved with doses of metoprolol? coronary spasm? GI component? - Echo - EF 60-65%; no regional wall motion abnormalities; mild concentric LVH; mild L atrial dilation; no significant valvular abnormalities - no change from prior November 2020 - Continue ASA 81 mg daily, Lisinopril 20 mg daily, add Imdur 30 mg daily -- Consider for starting BB? - Has not been able to tolerate daily statin - continue Rosuvastatin 20 mg Q48H (2) Uncontrolled diabetes mellitus: Plan: - Hold home regimen; A1c 8 and given age would like to see this trend closer to 6.5 to optimize cardiac risk - Continue Lantus 30 units daily and SSI (3) Diabetic peripheral neuropathy: Plan: - Continue gabapentin (4) BPH with obstruction/lower urinary tract symptoms: Plan: - Continue tamsulosin 0.4 mg at bedtime (5) Acid reflux: Plan: - Change Protonix to 40 mg BID; Add Pepcid BID - Will trial GI cocktail x 1 to see if relief is given as possibly chest pain is more GI instead of cardiac given the non-occlussive findings (6) Hyperlipidemia: Plan: - Takes 5 mg QOD - was increased to 20 mg QOD and monitor for pain - was intolerant to daily dosing due to muscle pains (7) Hypertension: Plan: - Improving - more elevated on admission - Maybe contributing? Maybe even trop was some demand ischemia in setting of hypertension? Plan: Monitor overnight. Address possible GI conditions contributing? Likely D/C tomorrow if improvement in symptoms Admission and Anticipated Discharge Date Admission Date: November 17, 2021 Subjective Patient admitted early this AM. Mild bump in trop and continued to have ongoing CP and feeling unwell. Underwent cath and nonocclussive disease and no stent required. Re-evaluated after cath and still with mild chest pain. Will trial some GI modalities to see if contribution. He does endorse some increasing sinus congestion. Review of Systems Review of Systems: All systems reviewed & are unremarkable except as noted in Subjective Physical Exam Physical Exam: PHYSICAL EXAM General Appearance: WDWN in NAD who is A&O x 3 HEENT: Head is normocephalic/atraumatic; Hearing grossly intact; Mucous membranes moist Neck: Supple; Trachea midline; Neg JVD Heart: RRR with no M/G/R Lungs: CTA in all lung ramirez bilaterally; Respirations unlabored; Neg accessory muscle use Abdomen: Soft, non-tender, non-distended; Positive BS x 4 quadrants; Neg organomegaly Extremities: Neg cyanosis or edema Neurological: Speech clear; Gross motor/sensory function intact; Neg focal neurologic deficits Psychiatric: Appropriate mood/affect Skin: Normal Color; Warm/Dry Results & Data Results & Data ([facility]) Vital Signs (Past 12 Hours) Vital Signs Temp Pulse Pulse Resp BP BP Pulse Ox 11/17/21 16:03 36.7 C 70 20 153/77 H 97 11/17/21 15:10 72 155/81 H 11/17/21 14:42 36.8 C 75 20 166/81 H 98 11/17/21 14:27 36.8 C 77 20 146/79 H 99 11/17/21 13:58 36.8 C 72 20 141/73 H 97 11/17/21 13:50 36.7 C 68 20 150/79 H 99 11/17/21 13:25 64 18 137/70 98 11/17/21 13:10 65 18 148/71 H 98 11/17/21 11:49 73 163/85 H 11/17/21 11:25 85 17 154/73 H 96 11/17/21 11:18 36.7 C 98 11/17/21 11:08 89 118/71 11/17/21 11:00 73 154/78 H 11/17/21 09:11 36.8 C 63 16 151/76 H 98 PG Care Time/CCT Total # of Minutes Spent Total Time Spent with Patient: Total time spent is greater than 50% in coordination of care (as documented) at patient's floor/unit and/or counseling patient: Coding Level of Care Code None Diagnoses Chest pain radiating to jaw R07.9 Uncontrolled diabetes mellitus E11.65 Diabetic peripheral neuropathy E11.42 BPH with obstruction/lower urinary tract symptoms N40.1; N13.8 Acid reflux K21.9 Hyperlipidemia E78.5 Hypertension I10 Hypertension type: primary hypertension (1) Hypertension Hypertension type: primary hypertension Qualified Code(s): I10 - Essential (primary) hypertension
[2021-11-17] MEDS: ISOSORBIDE MONO EXTENDED REL 30 MG TABCR PO SCH (16:52)
[2021-11-17] MEDS: FAMOTIDINE 20 MG TAB PO SCH (20:39)
[2021-11-17] MEDS: PANTOprazole 40 MG TAB PO SCH (20:40)
[2021-11-17] MEDS ORDERED: ROSUVASTATIN CALCIUM 20 MG TAB PO SCH (21:00)
[2021-11-17] MEDS ORDERED: GABAPENTIN 100 MG CAP PO SCH (21:00)
[2021-11-17] MEDS ORDERED: TAMSULOSIN HCL 0.4 MG CAP PO SCH (21:00)
--- NOTE | 2021-11-17 21:44 | Electrocardiogram Report ---
Test Reason : Blood Pressure : / mmHG Vent. Rate : 079 BPM Atrial Rate : 079 BPM P-R Int : 164 ms QRS Dur : 082 ms QT Int : 374 ms P-R-T Axes : 050 012 050 degrees QTc Int : 428 ms Normal sinus rhythm Septal infarct (cited on or before 16-NOV-2021) Abnormal ECG When compared with ECG of 01-AUG-2020 10:21, Nonspecific T wave abnormality, improved in Lateral leads Confirmed by Fxo Martinez ([id number]) on 11/17/2021 9:44:03 PM Referred By: REFERRED SELF Confirmed By:Fox Martinez
[2021-11-17] MEDS: LORATADINE 10 MG TAB PO SCH (22:13)
[2021-11-18] MEDS ORDERED: PNEUMOCOCCAL POLYSACCHARIDES 25 MCG/0.5 ML VIAL/SYR IM ONE (03:11)
--- NOTE | 2021-11-18 06:04 | Electrocardiogram Report ---
Test Reason : Blood Pressure : / mmHG Vent. Rate : 071 BPM Atrial Rate : 071 BPM P-R Int : 152 ms QRS Dur : 082 ms QT Int : 390 ms P-R-T Axes : 046 018 043 degrees QTc Int : 423 ms Normal sinus rhythm with sinus arrhythmia Abnormal ECG When compared with ECG of 16-NOV-2021 22:52, No significant change was found Confirmed by Fox Martinez ([id number]) on 11/18/2021 6:04:05 AM Referred By: REFERRED SELF Confirmed By:Fox Martinez
--- NOTE | 2021-11-18 06:33 | Electrocardiogram Report ---
Test Reason : Blood Pressure : / mmHG Vent. Rate : 086 BPM Atrial Rate : 086 BPM P-R Int : 174 ms QRS Dur : 072 ms QT Int : 358 ms P-R-T Axes : 056 020 055 degrees QTc Int : 428 ms Normal sinus rhythm Septal infarct (cited on or before 16-NOV-2021) Abnormal ECG When compared with ECG of 17-NOV-2021 06:22, No significant change was found Confirmed by Fox Martinez ([id number]) on 11/18/2021 6:33:24 AM Referred By: REFERRED SELF Confirmed By:Fox Martinez
[2021-11-18 06:54] LABS: Basophils # (auto) 0.03 K/uL (0-0.2); Basophils % (auto) 0.5 %; Eosinophils # (auto) 0.23 K/uL (0-0.5); Eosinophils % (auto) 3.8 %; Hematocrit (blood only) 40.2 % (42-52); Hemoglobin 13.5 g/dL (14.0-18.0); Immature Granulocytes # (auto) 0.03 K/uL (0.00-0.02); Immature Granulocytes % (auto) 0.5 %; Lymphocytes # (auto) 1.82 K/uL (1.2-3.4); Mean Corpuscular Hemoglobin 29.7 pg (25-34); Mean Corpuscular Hgb Conc 33.6 g/dL (32-36); Mean Corpuscular Volume 88.5 fL (80-100); Mean Platelet Volume 12.1 fL (7.4-10.4); Monocytes % (auto) 11.6 %; Neutrophils # (auto) 3.25 K/uL (1.4-6.5); Neutrophils % (auto) 53.6 %; Platelet Count 167 K/uL (130-400); RDW Coefficient of Variation 13.1 % (11.5-14.5); RDW Standard Deviation 42.4 fL (36.4-46.3); Red Blood Count 4.54 M/uL (4.7-6.1); White Blood Count 6.06 K/uL (4.8-10.8)
[2021-11-18 06:55] LABS: Albumin Level 3.7 gm/dl (3.4-5.0); BUN Creatinine Ratio 14.8 (10-20); Calcium 8.5 mg/dl (8.5-10.1); Creatinine Clr Calc Pharmacy 87.3 ml/min; Est GFR (African American) 87.8 ml/min; Est GFR (Non-African American) 75.8 ml/min; Magnesium 1.6 mg/dl (1.7-2.4); Phosphorus 3.3 mg/dl (2.5-4.9); Potassium 3.9 mmol/L (3.5-5.1)
--- NOTE | 2021-11-18 08:50 | Cardiology Progress Note ---
Date of Service November 18, 2021 Assessment & Plan (1) Recurrent chest pain: (2) Nonobstructive atherosclerosis of coronary artery: (3) Elevated troponin: (4) Dyspnea on exertion: (5) Hypertension: (6) Hyperlipidemia: Plan: Etiology of his recurrent chest pain remains uncertain, as demonstrated at catheterization 2014 and again at catheterization yesterday, despite his multiple vascular risk factors he has only nonobstructive/mild coronary artery disease. Since he is hypertensive, with mildly elevated troponin, he could possibly have a supply/demand mismatch (form of hypertensive urgency) resulting in demand ischemia and possibly chest discomfort. Alternatively, he does have a history of gastroesophageal reflux, esophageal spasm is another consideration. Would recommend initiation of amlodipine 2.5 mg daily, could be titrated upward as an outpatient based on response. This will help reduce cardiac demand and could also reduce esophageal spasm. Etiology of his chronic dyspnea on exertion uncertain. Pulmonary function test showed no major pathology. Once again, encouraged incremental exercise to build up his stamina/endurance. Did encourage continuing aspirin daily and rosuvastatin as tolerated, although his most recent LDL was not ideal (98) it is markedly improved over early last year (162). Patient should be ambulated and could be discharged home. Admission and Anticipated Discharge Date Admission Date: November 17, 2021 Subjective Uneventful night, he did not sleep well but he had no further chest pain. Cardiac catheterization showed only mild/nonobstructive coronary artery disease. BP mostly hypertensive since admission. Telemetry showed sinus rhythm in the 70 bpm range. No somatic complaints currently. Physical Exam Physical Exam: No distress. BP mildly hypertensive. Pulse 74 bpm and regular. Skin: no ecchymoses or generalized lesions. HEENT: unremarkable. Neck: no JVD or carotid bruits. Lungs: clear. Cardiac: regular rhythm, normal S1 and S2, no murmur or gallop. Abdomen: benign. Extremities: no edema, pulses intact. Right and left radial access sites benign, no hematoma, negative Fredy test. Neurologic: normal affect, nonfocal. Results & Data ([facility]) Vital Signs (Past 12 Hours) Vital Signs Temp Pulse Pulse Resp BP Pulse Ox 11/18/21 08:28 98.1 F 79 20 144/73 H 94 11/18/21 03:52 98.6 F 80 18 129/74 97 11/18/21 01:52 74 11/17/21 23:02 99.0 F 82 18 167/79 H 97 Laboratory Results Normal electrolytes, BUN 16, creatinine 1.08. Diagnostic Findings ECG today shows sinus rhythm at 81 bpm and was completely unremarkable. PG Care Time/CCT Total # of Minutes Spent Total Time Spent with Patient: Total time spent is greater than 50% in coordination of care (as documented) at patient's floor/unit and/or counseling patient: Coding Level of Care Code 90561 Subseq Hosp Care Lvl 3 Diagnoses Recurrent chest pain R07.9 Nonobstructive atherosclerosis of coronary artery I25.10 Elevated troponin R77.8 Dyspnea on exertion R06.00 Hypertension I10 Hypertension type: primary hypertension Hyperlipidemia E78.5 (1) Hypertension Hypertension type: primary hypertension Qualified Code(s): I10 - Essential (primary) hypertension
[2021-11-18] MEDS ORDERED: LORATADINE 10 MG TAB PO SCH (09:00)
[2021-11-18] MEDS: ASPIRIN 81 MG ECTAB PO SCH (09:06)
[2021-11-18] MEDS: FAMOTIDINE 20 MG TAB PO SCH (09:06)
[2021-11-18] MEDS: lisinopril 20 MG TAB PO SCH (09:06)
[2021-11-18] MEDS: ISOSORBIDE MONO EXTENDED REL 30 MG TABCR PO SCH (09:06)
[2021-11-18] MEDS: CHOLECALCIFEROL 1,000 UNITS 25 MCG TAB PO SCH (09:06)
[2021-11-18] MEDS: PANTOprazole 40 MG TAB PO SCH (09:06)
[2021-11-18] MEDS: LORATADINE 10 MG TAB PO SCH (09:06)
[2021-11-18] MEDS: INSULIN GLARGINE SOLOSTAR 100 UNITS/ML 3 ML PEN SQ SCH (09:07)
[2021-11-18] MEDS: INSULIN ASPART PER UNIT SC SCH ×2 (09:10→12:34)
[2021-11-18] MEDS ORDERED: amLODIPine BESYLATE 5 MG TAB PO ONE (09:31)
[2021-11-18] MEDS ORDERED: FLUTICASONE PROPIONATE NA SPR 16 GM BTL ONE (09:31)
[2021-11-18] MEDS ORDERED: OPTIRAY 320 125ml IV ONE (14:02)
--- NOTE | 2021-11-18 15:00 | CT Scan Report ---
CT ANGIOGRAPHY OF THE CHEST, PULMONARY EMBOLUS PROTOCOL CLINICAL HISTORY: R/O PE; Elevated troponin/atypical chest pain/dyspnea on exertion COMPARISON STUDY: Chest radiograph November 16, 2021. TECHNIQUE: Following IV administration of 120 mL of Optiray, helical axial images of the chest were o btained utilizing the pulmonary embolus protocol. Maximal intensity projections and sagittal and cor onal reformats were viewed on an independent 3D workstation. IV contrast was administered without co mplication. Automated exposure control was utilized for the study. A dose lowering technique was ut ilized adhering to the principles of ALARA. CT DOSE: 681.13 mGy.cm FINDINGS: No pulmonary emboli are identified. There is no thoracic aortic dissection. Mild cardiomeg bret is noted. No pericardial effusion. No pneumothorax or pleural effusion. No enlarged thoracic lymp h nodes are present. Central airways are patent. There are subtle alveolar opacities within the right upper lobe. Mild groundglass opacities with mosaic attenuation within the bilateral lower lobes are present. No acute fracture within the visualized bony thorax. Visualized portions of the upper abdome n are unremarkable. IMPRESSION: 1. No pulmonary emboli identified. 2. Subtle alveolar opacities within the right upper lobe which favor an infectious process. Mild grou ndglass opacities and mosaic attenuation within the bilateral lower lobes which favor atelectasis or air-trapping. 3. Mild cardiomegaly. 4. ACT 112: Negative or not required by law. Electronically signed by: Juvenal Braxton M.D. 11/18/2021 2:59 PM
--- NOTE | 2021-11-18 15:18 | Discharge Summary ---
Date of Service November 18, 2021 Admission HPI Per Admitting Provider The patient is a 56-year-old male with a past medical history including COVID-19 infection in September, obesity, uncontrolled diabetes mellitus, RLS, diabetic peripheral neuropathy, BPH with LUTS, GERD, hyperlipidemia, and hypertension. He presents with symptoms as noted above. He has had milder symptoms in the past, but nothing similar to this in intensity or persistence. He denies any recent change in dietary or exercise habits. He and his reports that there has been significantly more stress at work recently due it to being very busy due to it being backed up due to the COVID-19 pandemic Principal Diagnosis Chest Pain - GI?; Non-Occlusive CAD Discharge Exam PHYSICAL EXAM General Appearance: WDWN in NAD who is A&O x 3 HEENT: Head is normocephalic/atraumatic; Hearing grossly intact; Mucous membranes moist Neck: Supple; Trachea midline; Neg JVD Heart: RRR with no M/G/R Lungs: CTA in all lung ramirez bilaterally; Respirations unlabored; Neg accessory muscle use Abdomen: Soft, non-tender, non-distended; Positive BS x 4 quadrants; Neg organomegaly Extremities: Neg cyanosis or edema Neurological: Speech clear; Gross motor/sensory function intact; Neg focal neurologic deficits Psychiatric: Appropriate mood/affect Skin: Normal Color; Warm/Dry Discharge Data Allergies Allergy/AdvReac Type Severity Reaction Status Date / Time pollen extracts Allergy Congested Verified 11/17/21 01:14 Consultations 11/17/21 00:59 ED Decision to Admit Stat 11/17/21 09:19 Consult Cardiology Routine Procedures Performed Operation Date: 11/17/21 12:00 Actual Procedures s Cineradiography w/Routine Exam - Fox Martinez MD p Cath, Left with Cors and Vent - Fox Martinez MD Ordered Studies Chest X-Ray 11/16/21 22:53 XR chest 1V portable CLINICAL HISTORY: Atypical chest pain. COMPARISON STUDY: Chest radiograph November 09, 2020. FINDINGS: Lung volumes are normal. Lungs are clear. There is no pneumothorax or pleural effusion. Cardiac size is normal. Mediastinal contours are normal. There is no evidence for pulmonary edema. Healed left ninth rib fracture is again noted. IMPRESSION: No acute cardiopulmonary findings. ACT 112: Negative or not required by law. Electronically signed by: Juvenal Braxton M.D. 11/17/2021 7:18 AM Chest CTA 11/18/21 12:51 CT ANGIOGRAPHY OF THE CHEST, PULMONARY EMBOLUS PROTOCOL CLINICAL HISTORY: R/O PE; Elevated troponin/atypical chest pain/dyspnea on exertion COMPARISON STUDY: Chest radiograph November 16, 2021. TECHNIQUE: Following IV administration of 120 mL of Optiray, helical axial images of the chest were obtained utilizing the pulmonary embolus protocol. Maximal intensity projections and sagittal and coronal reformats were viewed on an independent 3D workstation. IV contrast was administered without complication. Automated exposure control was utilized for the study. A dose lowering technique was utilized adhering to the principles of ALARA. CT DOSE: 681.13 mGy.cm FINDINGS: No pulmonary emboli are identified. There is no thoracic aortic dissection. Mild cardiomegaly is noted. No pericardial effusion. No pneumothorax or pleural effusion. No enlarged thoracic lymph nodes are present. Central airways are patent. There are subtle alveolar opacities within the right upper lobe. Mild groundglass opacities with mosaic attenuation within the bilateral l ower lobes are present. No acute fracture within the visualized bony thorax. Visualized portions of the upper abdomen are unremarkable. IMPRESSION: 1. No pulmonary emboli identified. 2. Subtle alveolar opacities within the right upper lobe which favor an infectious process. Mild groundglass opacities and mosaic attenuation within the bilateral lower lobes which favor atelectasis or air-trapping. 3. Mild cardiomegaly. 4. ACT 112: Negative or not required by law. Electronically signed by: Juvenal Braxton M.D. 11/18/2021 2:59 PM Hospital Course (1) Chest pain radiating to jaw: - Possible Angina? R/O ACS in the setting of multiple risk factors -- Presented with L sided burning CP with radiation to jaw and arm/hypertension - Initial troponin 0.03 with repeat at 0.07 and ongoing symptoms - underwent cardiac cath on 11/17 with non-occlusive CAD findings without need for PCI -- Seemed to have improved with doses of metoprolol? coronary spasm? GI component? - Echo - EF 60-65%; no regional wall motion abnormalities; mild concentric LVH; mild L atrial dilation; no significant valvular abnormalities - no change from prior November 2020 - Continue ASA 81 mg daily, Lisinopril 20 mg daily, and adding Atorvastatin 2.5 mg daily with titration as outpatient for BP control, possibly improve GI sym ptoms, and heart protection - Has not been able to tolerate daily statin - continue Rosuvastatin 20 mg (higher dose and will have to monitor for tolerance) Q48H - CT - negative for PE; evidence of atelectasis -- there is a RUL opacity and he did develop new nasal congestion/post nasal drip so suspect some viral component; he is afebrile and without leukocytosis and will defer Abx at this time (2) Uncontrolled diabetes mellitus: - A1c 8 and given age would like to see this trend closer to 6.5 to optimize cardiac risk - Continue home regimen and can be further evaluated as outpatient. Encouraged dietary adjustments to assist (3) Diabetic peripheral neuropathy: - Continue gabapentin (4) BPH with obstruction/lower urinary tract symptoms: - Continue tamsulosin 0.4 mg at bedtime (5) Acid reflux: - Change Protonix to 40 mg BID x 14 days then can resume his normal dosing; added Pepcid daily x 7 days to see if dual therapy assists as he did get some relief with GI cocktail during admission (6) Hyperlipidemia: - Takes 5 mg QOD - was increased to 20 mg QOD and monitor for pain - was intolerant to daily dosing due to muscle pains (7) Hypertension: - Improving - more elevated on admission - Maybe contributing? Maybe even trop was some demand ischemia in setting of hypertension? Follow-up with Dr. Miller in coming weeks Total Time Total Time Spent Total Time Spent (In Minutes): Spent greater than 30 minutes preparing patient for discharge. This includes discussion with patient/family, assessment, intervention, medication reconciliation, and coordination of care. Discharge Plan Discharge Items Patient Disposition: Home - Self-Care Reason For Visit: CHEST PAIN Discharge Diagnosis: Non-Occlusive Chest Pain Activity: Per Instructions section Non-emergency contact: Primary Care Provider and [facility] Electronic Call non-emergency contact if: you have any medication questions, your symptoms worsen and you have a fever Follow-up/Referrals: Corinna Braxton MD [Primary Care Provider] - Diet: Carb Consistent or DM2 and Heart Healthy Addtl Attending Provider Instructions: ACTIVITY RECOMMENDATIONS: Excess manipulation of the wrist should be avoided for the next 24-48 hours. * No lifting over 2 pounds (approximately a 1/2 gallon of milk) with the utilized arm for 24 hours. * No strenuous activity such as bowling or tennis for 3 days. * Keep the site of the procedure covered with a bandage for 24 hours. *You may shower the day after the procedure. Do not take a tub bath or submerge the puncture site in water for the next 3 days. *Do not operate any motorized equipment for 3 days. SPECIAL CARE INSTRUCTIONS: The site may be slightly bruised and sore following your procedure. Should any of the following occur, contact the Dr. who performed your procedure. 1. Redness/inflammation, swelling, chills, or fever, or colored drainage at procedure site within 3-7 days after your procedure. 2. Coldness, discoloration, ongoing numbness, severe pain, or swelling. Expect mild tingling of hand and tenderness at the puncture site for up to three days. If this persists beyond three days, or other symptoms develop, notify the Dr. who performed your procedure. BLEEDING: If the procedure site on your wrist begins to bleed, do not panic 1. Place 1 or 2 fingers firmly just slightly above the insertion site to stop the bleeding. You may be able to feel your pulse as you hold pressure. 2. Lift your finger after 5 minutes to see if the bleeding has stopped. 3. Once the bleeding has stopped, gently wipe the wrist area clean with a bandage. * If the bleeding from your wrist does not stop after 10 minutes, or if there is a large amount of bleeding or spurting, call 911 (do not drive yourself to the hospital). SKIN IRRITATION: * You may experience some redness and/or swelling in the area where radiation was administered. If any skin irritation occurs, please contact your family physician. FOLLOW UP VISIT: 1. Follow up with Dr. Miller in 1-2 weeks. 2. Keep any scheduled doctor appointments. Addtl Python Architect Provider Instructions: Chest Pain: Non-Occlusive Coronary Artery Disease - You were admitted for chest pain. The full etiology is uncertain but question whether GI in nature vs maybe a level of small vessel issues related to the heart. - Thankfully you had a cardiac catheterization that did not show significant blockages requiring a stent. It will be important to continue to reduce risk factors that you can control. Keeping your blood sugars under control, blood pressure control, cholesterol control, heart heathy diet, regular exercise, avoi ding tobacco products - As well, the ultrasound of your heart looks good. You have normal pumping action of the heart and the killian of the heart move the way they should. - Your fitness/wellness director would like to start amlodipine. This is a blood pressure medication that can help with blood pressure, the heart, and can help with esophageal spams/GI issues. We will start a low dose at 2.5 mg daily and can increase it as an outpatient as needed. - Recommend to continue a baby aspirin (81 mg) daily for overall heart health. - It was recommended to increase your Rosuvastatin (Crestor) to 20 mg every oth er day. However, if you cannot tolerate it due to pain then may have to continue your previous dose and talk with your fitness/wellness director. Chest CAT Scan: - We did perform a chest scan to check for any blood clots. Thankfully no clots were found to explain your presentation. - It can see there is some atelectasis (this is when the little airways in the lungs clamped down). We all have a bit of this from time to time so the bates is staying active and taking nice deep breaths to keep those lungs fully expanded Diabetes: - Your A1c is 8. Given your age it would be best to get this number closer to 6.5 through diet management and medications. - Even a 5 lbs weight loss can assist with better sugar control. - Please follow-up with your doctor to continue to monitor and manage this. Diabetes is linked with cardiac disease Reflux: - There is a possibility some GI issues are related. Recommend to take Protonix 40 mg twice a day for 2 weeks then resume your normal dosing - Would also add Pepcid x 7 days to help reduce acid. - On your CAT scan there is a good amount of stool in the upper part of the abdomen right under the stomach. This could cause some pressure on the stomach that can increase reflux symptoms. Recommend to either take Miralax or Dulcolax for a couple days to help promote good bowel movement then can just take if needed for constipation Pending Studies at Discharge: No Stand-Alone Forms: My [employer], Smoking Cessation Medications and DC Order Prescriptions: New aspirin 81 mg Tablet,Delayed Release (Dr/Ec) 81 mg PO DAILY 30 Days Qty: 30 RF: 0 famotidine 20 mg Tablet 20 mg PO DAILY 14 Days Qty: 14 RF: 0 amlodipine 5 mg tablet 2.5 mg PO DAILY 30 Days Qty: 15 RF: 0 Continued tamsulosin 0.4 mg capsule 0.4 mg PO HS Qty: 90 RF: 1 (DME) Contour Next Test Strips Strip See Rx Instructions .Route RF: 0 (DME) pen needle, diabetic [BD Saida 2nd Gen Pen Needle] 32 gauge x 5/32" needle See Rx Instructions .Route Qty: 100 RF: 1 (DME) insulin syringe-needle U-100 [BD Insulin Syringe Ultra-Fine] 0.5 mL 31 gauge x 5/16" syringe See Rx Instructions .Route Qty: 300 RF: 3 Tresiba FlexTouch U-100 100 unit/mL (3 mL) insulin pen 45 unit subcut DAILY 90 Days Qty: 45 RF: 3 insulin aspart U-100 100 unit/mL solution See Rx Instructions SQ TID Qty: 54 RF: 0 gabapentin 100 mg capsule 100 mg PO HS PRN (Reason: neuropathy) RF: 0 semaglutide 0.25 mg or 0.5 mg(2 mg/1.5 mL) pen injector 0.5 mg subcut WK RF: 0 lisinopril 20 mg tablet 20 mg PO QAM RF: 0 Changed pantoprazole 40 mg tablet,delayed release (DR/EC) 40 mg PO BID 14 Days Qty: 28 RF: 0 rosuvastatin 20 mg tablet 20 mg PO .QOD 30 Days Qty: 15 RF: 0 Discharge Orders: Discharge Order (Routine); Ordered 11/18/21 Ordered By: Ariella Montano/Other Patient Handouts: Managing Type 2 Diabetes, Special Foot Care for Diabetes Admission Data Admit Date/Time: 11/17/21 00:52 Attending Provider: Kane Malik Admit Provider: Fernie Killian Primary Care Provider: Corinna Braxton Other Providers: Magnus Alfred ; Fox Martinez Other Interventions: Discharge Summary Assessment (RN) Last Done: 11/18/21 15:33 Coding Level of Care Code D/C DAY MANAGEMENT >30 MINS Diagnoses Chest pain radiating to jaw R07.9 Uncontrolled diabetes mellitus E11.65 Diabetic peripheral neuropathy E11.42 BPH with obstruction/lower urinary tract symptoms N40.1; N13.8 Acid reflux K21.9 Hyperlipidemia E78.5 Hypertension I10 Hypertension type: primary hypertension
--- NOTE | 2021-11-19 15:08 | Electrocardiogram Report ---
Test Reason : Blood Pressure : / mmHG Vent. Rate : 081 BPM Atrial Rate : 081 BPM P-R Int : 158 ms QRS Dur : 080 ms QT Int : 386 ms P-R-T Axes : 059 023 059 degrees QTc Int : 448 ms Normal sinus rhythm Normal ECG When compared with ECG of 17-NOV-2021 11:06, No significant change was found Confirmed by Fox Martinez ([id number]) on 11/19/2021 3:07:49 PM Referred By: REFERRED SELF Confirmed By:Fox Martinez
== END 2021-11-18 16:06 | disposition home or self-care (01) ==
LOC: ED 22:46 → 2S 22:46 → SUATTDRO 11-17 00:52 → 2S 11-17 02:34